=== PATIENT | male | born 1995 | race Caucasian/White ===

== ENCOUNTER 2017-01-01 22:32 | Emergency (ER) | payer OTHER ==
[~2017-01-01] VITALS: Ht 180.3 cm; Wt 89.0 kg
[2017-01-01 22:32] VITALS: Ht 180.3 cm; Wt 89.0 kg
[2017-01-01] MEDS ORDERED: IPRATROPIUM (NEB) 0.5 MG/2.5 ML AMP NEB STA (22:35)
[2017-01-01] MEDS ORDERED: predniSONE 20 MG TAB PO STA (22:35)
[2017-01-01] MEDS ORDERED: ALBUTEROL 0.5% (NEB) 2.5 MG/0.5 ML AMP NEB STA (22:35)
--- NOTE | 2017-01-01 23:01 | ERD ---
ER Documentation Chief Complaint Date/Time DATE: 01/01/17 TIME: 22:59 Chief Complaint HPI This is a 21-year-old male comes in with shortness of breath. Denies any nausea denies vomiting denies any chills. Shortness breath or loss yesterday. Patient has history of asthma. No fevers or chills. Mild cough. Mild productive. ROS All systems reviewed and are negative except as per history of present illness. Medications Home Meds No Active Prescriptions or Reported Meds Allergies Allergies: Uncoded Allergies: NUTS (Allergy, Unknown, 11/27/14) EXCEPT PEANUTS PMhx/Soc History of Surgery: No Anesthesia Reaction: No Hx Neurological Disorder: No Hx Respiratory Disorders: Yes (asthma) Hx Cardiac Disorders: No Hx Psychiatric Problems: No Hx Miscellaneous Medical Probl: No Hx Alcohol Use: No Hx Substance Use: No Hx Tobacco Use: No Physical Exam Vitals Vital Signs Date Time Temp Pulse Resp B/P Pulse Ox O2 Delivery O2 Flow Rate FiO2 01/01/17 22:48 125 20 97 21 Physical Exam Const: [] Head: Atraumatic Eyes: Normal Conjunctiva ENT: Normal External Ears, Nose and Mouth. Neck: Full range of motion..~ No meningismus. Resp: Scattered wheezes bilaterally Cardio: Regular rate and rhythm, no murmurs Abd: Soft, non tender, non distended. Normal bowel sounds Skin: No petechiae or rashes Back: No midline or flank tenderness Ext: No cyanosis, or edema Neur: Awake and alert Psych: Normal Mood and Affect Results 24 hrs Current Medications Medications (Trade) Dose Ordered Sig/Camille Route PRN Reason Start Time Stop Time Status Last Admin Dose Admin Albuterol (Proventil 0.5% (Neb)) 5 mg ONCE STAT NEB 01/01/17 22:35 01/01/17 22:37 DC 01/01/17 22:42 Ipratropium [place] (Atrovent 0.02% (Neb)) 0.5 mg ONCE STAT NEB 01/01/17 22:35 01/01/17 22:37 DC 01/01/17 22:42 Prednisone (Prednisone) 60 mg ONCE STAT PO 01/01/17 22:35 01/01/17 22:37 DC 01/01/17 22:52 Procedures/MDM Patient's respiratory status has stabilized while in the department and is appropriate for outpatient work up. Exam and work up not consistent w/ impending respiratory failure or cardiovascular collapse. Patient has evidence of mild bronchitis patient with a surgeon azithromycin, prednisone, albuterol. Follow-up with PCP tomorrow. Return for worsening symptoms. Departure Diagnosis: Primary Impression: Asthma exacerbation Additional Impression: Acute bronchitis Bronchitis organism: unspecified organism Qualified Code: J20.9 - Acute bronchitis, unspecified organism Condition: Stable YUE SILVER Jan 01, 2017 23:00
[2017-01-01] MEDS ORDERED: ALBU18HF INHALATION (23:02)
[2017-01-01] MEDS ORDERED: AZIT250T94 PO (23:02)
[2017-01-01] MEDS ORDERED: PRED20TA PO (23:02)
[2017-01-01 23:05] VITALS: PULSE 112; RESP 20
== END 2017-01-01 23:05 | disposition home or self-care (01) ==
LOC: E/R 22:32
DX: J45.901 Unspecified asthma with (acute) exacerbation (principal); J20.9 Acute bronchitis, unspecified
CPT/HCPCS: 94664; J7512